=== PATIENT | male | born 1940 | race Caucasian/White ===

== ENCOUNTER 2016-09-14 22:04 | Inpatient (IN) | payer OTHER ==
[2016-09-14 22:42] LABS: MANUAL DIFF NEEDED? NO
[2016-09-14 22:45] LABS: BASO% 0.2 % (0.0-0.8); EOS# 0.05 X1000 (0.0-0.7); EOS% 0.4 % (0.0-10.0); HEMATOCRIT 49.4 % (42.0-52.0); HEMOGLOBIN 16.8 g/dL (14.0-18.0); IMM GRAN# 0.03 X1000 (0.0-0.04); IMM GRAN% 0.2 % (0.0-0.5); LYMPH# 1.79 X1000 (1.2-3.4); LYMPH% 12.7 % (20.5-51.1); MCV 85.2 FL (81-99); MONO# 0.48 X1000 (0.11-0.59); MONO% 3.4 % (1.7-9.3); MPV 10.5 FL (7.4-10.4); NEUT% 83.1 % (42.2-75.2); PLT 344 X1000 (130-400)
[2016-09-14 23:11] LABS: ALBUMIN 4.2 g/dL (3.5-5.0); CALCIUM 10.1 mg/dL (8.8-10.2); POTASSIUM 4.1 mmol/L (3.5-5.1); TOTAL BILIRUBIN 0.95 mg/dL (0.20-1.00); TOTAL PROTEIN 7.9 g/dL (6.3-8.3)
--- NOTE | 2016-09-15 01:26 | PROVIDER DOCUMENTATION ---
HPI-Abdominal Pain/GI Problem - General Chief Complaint: Abdominal Pain Stated Complaint: ABD PAIN Time Seen by Provider: 09/15/16 00:48 Source: patient Allergies/Adverse Reactions: Patient Allergies Allergy/AdvReac Type Severity Reaction Status Date / Time No Known Allergies Allergy Verified 09/14/16 23:36 Home Medications: Home Medication List Medication Instructions Recorded Confirmed Last Taken Type Tamsulosin [Flomax] 0.4 mg PO DAILY 07/29/16 09/14/16 09/14/16 History Levofloxacin [Levaquin] 500 mg PO DAILY #7 tablet 09/12/16 09/14/16 09/14/16 Rx Metronidazole [Flagyl] 500 mg PO Q8HR #21 tablet 09/12/16 09/14/16 09/14/16 Rx Omeprazole [Prilosec] 40 mg PO DAILY #90 capsule 09/12/16 09/14/16 09/14/16 Rx - History of Present Illness-ABD Nature of Presenting Problems: 76 year old M presents to the ED with a cc of nausea, vomiting, and diarrhea. PT states that on 09/09 he was seen here for the same. Pt states that he was admitted and diagnosed with colitis. PT was d/c on 09/12. Pt states that he felt better until yesterday when the nausea, vomiting, and pain began. Pt denies pain at this time. Abdominal Pain Onset Location: reports: periumbilical, suprapubic Pain Radiation: reports: no radiation Quality of Pain: reports: aching Severity in ED: reports: mild Onset/Duration: reports: 24 hours ago Timing: reports: still present Associated Symptoms: reports: nausea, vomiting Similar Symptoms Previously?: Yes Recently seen or treated by another doctor?: Yes Review of Systems - Adult - REVIEW OF SYSTEMS - ADULT Constitutional: denies: chills, fever Eyes: reports: no symptoms reported Ears, Nose, Mouth & Throat: reports: no symptoms reported Cardiovascular: denies: chest pain, palpitations Respiratory: denies: cough, shortness of breath Gastrointestinal: reports: abdominal pain, nausea, vomiting Genitourinary: denies: dysuria, hematuria Musculoskeletal: reports: no symptoms reported Integumentary: reports: no symptoms reported Neurological: reports: no symptoms reported Psychiatric: reports: no symptoms reported Endocrine: reports: no symptoms reported Hematologic/Lymphatic: reports: no symptoms reported Allergic/Immunologic: reports: no symptoms reported All Other Systems: Reviewed and Negative Past History - Adult - PAST MEDICAL HISTORY-ADULT Review of Records: reports: Nursing Assessment Review, Medications Reviewed Major Childhood Illnesses: reports: denies history Cardiovascular: reports: denies history Respiratory: reports: denies history Gastrointestinal: reports: denies history Obstetrical/Gynecological: reports: denies history Genitourinary: reports: denies history Musculoskeletal: reports: denies history Neurological: reports: denies history Endocrine/Immune: reports: denies history Other Conditions: reports: denies history - PRIOR SURGERIES/PROCEDURES Surgical/Procedure History: reports: appendectomy, cholecystectomy, other ( polyps removed from colon) - IMMUNIZATION STATUS Childhood Immunizations: See Nurse Assessment Flu Vaccine: See Nurse Assessment - FAMILY HISTORY Family History: reviewed, not pertinent - SOCIAL HISTORY Smoking: non-smoker Substance Use: none/never Alcohol Use Frequency: never Physical Exam-General - PHYSICAL EXAM-ADULT Initial Vital Signs Reviewed: Yes - CONSTITUTIONAL General Appearance: appears well, alert, no apparent distress - RESPIRATORY Respiratory: chest non-tender, lungs clear, normal breath sounds - CARDIOVASCULAR Cardiovascular: normal peripheral pulses, regular rate, rhythm, no edema - GASTROINTESTINAL (ABDOMEN) Abdominal Exam: normal bowel sounds, non tender, soft, no organomegaly, no pulsatile mass. negative: distended, guarding, rigid - MUSCULOSKELETAL Extremity: normal inspection - SKIN Integumentary: normal color, normal turgor, warm/dry - PSYCHIATRIC Psych/Mental Status: normal mood/affect, normal thought content, normal thought process, oriented x 3 Progress - PLAN OF CARE/RESULTS Progress/Plan/Lab Results: plan of care: imaging, labs Orders Category Date Time Status Saline Loc DIRECTED Care 09/14/16 22:23 Active NPO Diet 09/14/16 22:23 Active FLAT/UPRIGHT ABD/1 VIEW CHEST [RAD] Stat Exams 09/15/16 01:16 Taken AMYLASE [CHEM] Stat Lab 09/14/16 22:25 Completed CBC WITH ELECTRONIC DIFF [HEME] Stat Lab 09/14/16 22:25 Completed COMPREHENSIVE METABOLIC PANEL [CHEM] Stat Lab 09/14/16 22:25 Completed LIPASE [CHEM] Stat Lab 09/14/16 22:25 Completed URINALYSIS W/POSS RFLX CULT [URINALYSIS] Stat Lab 09/15/16 01:53 Completed URINE CULTURE [RM] Routine Lab 09/15/16 02:12 Received URINE MANUAL MICROSCOPIC [URINALYSIS] Stat Lab 09/15/16 01:53 Completed Laboratory Tests 09/14/16 09/14/16 09/15/16 22:25 22:25 01:53 WBC 14.09 H RBC 5.80 Hgb 16.8 Hct 49.4 MCV 85.2 MCH 29.0 MCHC 34.0 RDW Std Deviation 13.2 Plt Count 344 MPV 10.5 H Immature Gran % (Auto) 0.2 Neut % (Auto) 83.1 H Lymph % (Auto) 12.7 L Banner % (Auto) 3.4 Eos % (Auto) 0.4 Baso % (Auto) 0.2 Immature Gran # (Auto) 0.03 Neut # (Auto) 11.71 H Lymph # (Auto) 1.79 Banner # (Auto) 0.48 Eos # (Auto) 0.05 Baso # (Auto) 0.03 Sodium 138 Potassium 4.1 Chloride 96 L Carbon Dioxide 24 L Anion Gap 18 BUN 8 Creatinine 1.2 Estimated GFR/1.73 m2 59 BUN/Creatinine Ratio 7 Glucose 119 H Calculated Osmolality 275 Calcium 10.1 Total Bilirubin 0.95 AST 22 ALT 16 Alkaline Phosphatase 65 Total Protein 7.9 Albumin 4.2 Globulin 3.7 Albumin/Globulin Ratio 1.1 Amylase 53 Lipase 20 Urine Source CLEAN CATCH Urine Color ORANGE Urine Turbidity HAZY Urine pH 5.5 Ur Specific [place] 1.028 Urine Protein 100 A Ur Glucose (Stick) NEGATIVE Ur Ketones (Stick) 60 A Urine Blood TRACE A Urine Nitrite NEGATIVE Urine Bilirubin NEGATIVE Urobilinogen Dipstick NORMAL Urine Leukocytes TRACE A Urine WBC (Auto) <10 Urine RBC (Auto) <10 U Epithel Cells (Auto) <10 Urine Bacteria (Auto) NEGATIVE Urine Crystals NONE SEEN Small Round Cells NONE SEEN Urine Casts NONE SEEN Urine Yeast-like Cells NONE SEEN Vital Signs - 24 hr 09/14/16 09/15/16 22:17 00:20 Temperature 97.5 F L Pulse Rate 104 H 76 Respiratory 20 18 Rate Blood Pressure 106/78 117/82 O2 Sat by Pulse 98 95 Oximetry Pt/family given results. Pt will be admitted to the hospitalist group. PT/ Family in agreement with plan of care. - CONSULTS/PCP/HOSPITALIST Notification #1 *Consult/PCP/Hospitalist*: Dr. Pate- Hospitalist Time Discussed: 02:42 Consult Disposition: Will see in ED, Admit Departure - Departure Time of Disposition Order: 02:44 DIAGNOSIS: Colitis Disposition: ADMITTED INPATIENT 09 Certified Medical Emergency: Emergent Condition: Stable Referrals: Luis Mera MD [Primary Care Provider] - Attestation - Scribe Verification/Attestation Scribe:: Vane Ace Acting as Scribe for:: Tamir Leslie Scribe documention review:: This chart was documented by a scribe and accurately reflects the service the provider performed and the decisions made by the provider. Physician Attestation - Physician Attestation I, the provider, attest to the following statement:: Tamir Leslie Physician documentation Attestation:: This documentation recorded by the scribe accurately reflects the service I personally performed and the decisions made by me.
[2016-09-15 02:01] LABS: URINE SOURCE CLEAN CATCH
[2016-09-15 02:08] LABS: URINE MICRO REVIEW NEEDED? YES
[2016-09-15 02:11] LABS: BILIRUBIN URINE NEGATIVE (NEGATIVE); BLOOD URINE TRACE (NEGATIVE); COLOR ORANGE; GLUCOSE URINE NEGATIVE (NEGATIVE); LEUKOCYTES URINE TRACE (NEGATIVE); NITRITE URINE NEGATIVE (NEGATIVE); PH URINE 5.5; PROTEIN URINE 100 mg/dL (NEGATIVE); SP GRAVITY URINE 1.028; TURBIDITY URINE HAZY (CLEAR); UR EPITHELIAL CELLS <10 /HPF (<10); URINE BACTERIA NEGATIVE /HPF; URINE CULTURE NEEDED? YES; URINE RBC <10 /HPF (<10); URINE WBC <10 /HPF (<10); UROBILINOGEN URINE NORMAL (NORMAL)
[2016-09-15 02:36] LABS: URINE CASTS NONE SEEN; URINE CRYSTALS NONE SEEN; URINE SMALL ROUND CELLS NONE SEEN
[2016-09-15 04:50] LABS: INR 1.07; PROTIME 11.3 Seconds (9.2-11.7); PTT 27.3 Seconds (22.0-36.0)
[2016-09-15] MEDS ORDERED: ZOFRAN IV PRN (04:59)
[2016-09-15] MEDS ORDERED: TYLENOL PO PRN (04:59)
[2016-09-15] MEDS: FLAGYL 500 MG/NS 100 ML IV SCH ×3 (06:13→19:59)
[2016-09-15] MEDS: NS 1,000 ML IV SCH ×2 (06:13→18:08)
[2016-09-15] MEDS: PROTONIX IV SCH (06:14)
[2016-09-15 07:09] LABS: MANUAL DIFF NEEDED? NO
[2016-09-15 07:13] LABS: BASO% 0.2 % (0.0-0.8); EOS# 0.05 X1000 (0.0-0.7); EOS% 0.6 % (0.0-10.0); HEMATOCRIT 44.2 % (42.0-52.0); LYMPH# 1.97 X1000 (1.2-3.4); LYMPH% 22.2 % (20.5-51.1); MCH 29.1 PG (27-31); MCHC 33.9 g/dL (33-37); MCV 85.8 FL (81-99); MONO# 0.52 X1000 (0.11-0.59); MONO% 5.9 % (1.7-9.3); MPV 10.3 FL (7.4-10.4); NEUT% 71.1 % (42.2-75.2); PLT 298 X1000 (130-400); RBC 5.15 XMIL (4.7-6.1)
[2016-09-15] MEDS: LEVAQUIN 750 MG/D5W 150 ML IV SCH (07:25)
--- NOTE | 2016-09-15 07:25 | Diag Imaging Result Document ---
PROCEDURE NAME: FLAT/UPRIGHT ABD/1 VIEW CHEST - 09/15/2016 FLAT AND UPRIGHT AND CHEST, THREE VIEWS: FINDINGS: The lungs are well expanded. The heart is not enlarged. No pneumonia. No free air beneath the diaphragm. Air-distended small bowel loop in the mid abdomen. No organomegaly. No abnormal abdominal calcifications. Mild scoliosis with degenerative spine changes. There is a surgical clips in the upper right abdomen. IMPRESSION: Development of an air-distended loop of small bowel in the midabdomen which was not present on 09/10/2016. Findings could represent an ileus or a partial early obstruction. Followup films recommended.
[2016-09-15 07:34] LABS: AGAP 12; BUN 11 mg/dL (8-22); CHLORIDE 99 mmol/L (98-107); COSMO 271; POTASSIUM 3.9 mmol/L (3.5-5.1); SODIUM 136 mmol/L (136-145); TCO2 25 mmol/L (25-35)
[2016-09-15] MEDS: FLOMAX PO SCH (09:14)
[2016-09-15] MEDS: MORPHINE IV PRN ×2 (13:05→19:59)
--- NOTE | 2016-09-15 13:10 | Diag Imaging Result Document ---
PROCEDURE NAME: ABDOMEN/PELVIS W/WO CONTRAST - 09/15/2016 CT ABDOMEN AND PELVIS WITHOUT AND WITH INTRAVENOUS CONTRAST: COMPARISON: 09/09/2016. FINDINGS: On the noncontrast exam, there are a couple of stable nonobstructing left renal stones measuring about 3 mm. On the contrast-enhanced exam, there is some trace perihepatic free fluid and some trace pelvic free fluid, slightly increased from prior. There are numerous small, grossly stable cystic lesions in the liver. There is COPD in the lung bases with some linear atelectasis or scarring in the lower lobes. Heart size remains normal. Stable cholecystectomy changes. No biliary dilation. There are some stable left renal cysts. The pancreas, spleen, and adrenals are normal. Stable surgical changes to the hepatic flexure of the colon. There is a stable enhancing stricture of the distal-most ileum. There is significant dilation of the remainder of the small bowel concerning for partial obstruction. There is progressive collapse of the distal colon. The proximal colon is grossly normal in caliber and filled with fluid. Rectum is normal. Urinary bladder and prostate are normal. Stable degenerative changes of the bones. No acute bony lesions. IMPRESSION: 1. More evident stricture of the distal-most ileum with proximal small-bowel obstruction. 2. Trace ascites, slightly worsened since prior.
[2016-09-15] MEDS ORDERED: GOLYTELY PO ONE (15:08)
[2016-09-16] MEDS: PROTONIX IV SCH (04:55)
[2016-09-16] MEDS: SODIUM CHLORIDE 0.9% INJ SCH (04:55)
[2016-09-16] MEDS: FLAGYL 500 MG/NS 100 ML IV SCH ×3 (04:55→23:13)
[2016-09-16 05:43] LABS: MANUAL DIFF NEEDED? NO
[2016-09-16 05:49] LABS: BASO% 0.4 % (0.0-0.8); EOS# 0.09 X1000 (0.0-0.7); EOS% 1.3 % (0.0-10.0); HEMATOCRIT 43.2 % (42.0-52.0); HEMOGLOBIN 14.3 g/dL (14.0-18.0); LYMPH# 1.87 X1000 (1.2-3.4); LYMPH% 26.3 % (20.5-51.1); MCH 28.9 PG (27-31); MCHC 33.1 g/dL (33-37); MCV 87.4 FL (81-99); MONO# 0.53 X1000 (0.11-0.59); MONO% 7.4 % (1.7-9.3); MPV 10.4 FL (7.4-10.4); NEUT% 64.6 % (42.2-75.2); PLT 261 X1000 (130-400); RBC 4.94 XMIL (4.7-6.1)
[2016-09-16] MEDS: LEVAQUIN 750 MG/D5W 150 ML IV SCH (06:00)
[2016-09-16 06:30] LABS: AGAP 11; BUN 13 mg/dL (8-22); CALCIUM 8.9 mg/dL (8.8-10.2); CHLORIDE 102 mmol/L (98-107); COSMO 275; POTASSIUM 5.1 mmol/L (3.5-5.1); SODIUM 138 mmol/L (136-145); TCO2 25 mmol/L (25-35)
[2016-09-16] MEDS: FLOMAX PO SCH (08:33)
--- NOTE | 2016-09-16 08:57 | HISTORY AND PHYSICAL ---
PRIMARY CARE PROVIDER: Luis Mera MD CHIEF COMPLAINT: Abdominal pain. HISTORY OF PRESENT ILLNESS: Mr. Salcido is a 76-year-old male who was just recently discharged from the hospital on 09/12/2016 after being treated for acute colitis. He was sent home with oral Levaquin and Flagyl and was instructed to follow up with his primary care physician and Dr. Benites in two weeks. The patient states since his discharge that he had begun feeling better though stated yesterday he began having nausea and vomiting as well as abdominal pain. The patient described his abdominal pain as pins and needles type of pain. He states that it is intermittent, feeling like it comes in waves. He denies anything making it better or worse. He reports that the pain is periumbilical, as well as generalized upper quadrants. He is nontender upon palpation and bowel sounds were present in all four quadrants and normoactive. The patient on his two previous admissions for his treatment of colitis did have diarrhea present. Stool studies were performed which were negative. The patient at this time is denying any diarrhea, though he reports that he has only gone a small amount over the past few days. He reports that this had been soft, formed stool, brown in color. He denies any bloody or black stools. The patient reports that his emesis is light brown in color. He denies any blood or coffee-grounds appearance to his emesis. The patient did have a CT abdomen and pelvis performed on September 09 that did show worsening abdominal dilation of much of the small bowel, as well as the stomach with alternating areas of narrowing and some mucosal enhancement. The appearance was nonspecific though did suggest enterocolitis or inflammatory bowel disease. Due to continued nausea and vomiting, the patient did have an NG tube placed on his previous admission for a possible bowel obstruction. He did have a small bowel barium follow through study performed which was grossly unremarkable and no evidence of obstruction. Upon presentation to the ER today the patient's white blood cell count was elevated at 14.09, which was an increase from 5.32 on September 12. At this time we will admit the patient for further treatment and evaluation of his colitis, abdominal pain, nausea and vomiting. We will consult Dr. Benites with Gastroenterology to evaluate the patient as well. REVIEW OF SYSTEMS: A 14-point review of systems was conducted with the patient and all were negative except for pertinent positives mentioned in the above HPI. He denies any headache, dizziness, light-headedness, chest pain, shortness of breath, dysuria, or urinary frequency, pain, numbness or tingling in the extremities. PAST MEDICAL HISTORY: 1. Gastroesophageal reflux disease. 2. Benign prostatic hypertrophy. PAST SURGICAL HISTORY: 1. Cholecystectomy. 2. Abdominal surgery for removal of a colon polyp. SOCIAL HISTORY: The patient denies any present or past tobacco, alcohol or illicit drug use. FAMILY HISTORY: Positive for his mother passing away from heart disease at the age of 89. The patient also reported that his father from heart disease as well. He denies any other known family medical problems. ALLERGIES: The patient has no known drug allergies. HOME MEDICATIONS: 1. Levaquin 500 mg p.o. daily. 2. Flagyl 500 mg p.o. q.8 h. 3. Prilosec 40 mg p.o. daily. 4. Flomax 0.4 mg p.o. daily. DIAGNOSTIC DATA/ LABORATORY RESULTS: White blood cell count was 14.09. Hemoglobin 16.8. Hematocrit 49.4. Platelet count 344,000. ESR was 3. PT 11.3. INR 1.07. PTT 27.3. Sodium 138. Potassium 4.1. Chloride 96. Bicarb 24. BUN 8. Creatinine 1.2. GFR 59. Glucose 119. Calcium 10.1. Liver function tests within normal limits. C-reactive protein was 2.89. Amylase 53. Lipase 20. The urinalysis was obtained via clean catch. It was positive for protein, ketones, trace blood, and trace leukocytes, though was negative for glucose, nitrites, or bacteria. Pending diagnostic studies are an abdomen flat and upright. PHYSICAL EXAMINATION: VITAL SIGNS: Temperature is 97.5, heart rate 70, respirations 19, and blood pressure is 102/75. The oxygen saturation is 96% on room air. GENERAL: Mr. Salcido is a very pleasant elderly 76-year-old male who is resting comfortably in the ER stretcher. He is in no acute distress. He was awake, alert, and able to answer all questions appropriately. HEENT: The head is normocephalic and atraumatic. The pupils are equal, round, and reactive to light, 3 mm bilaterally and brisk. The oral mucosa is moist. The oropharynx is clear. NECK: Supple. The trachea is midline. No JVD is noted. CARDIOVASCULAR: The patient has a normal S1 and S2. No murmurs, rubs, or gallops are appreciated, with a regular rate and rhythm. PULMONARY: The patient has symmetrical chest expansion bilaterally. The lung sounds are clear to auscultation in bilateral full rhoades. ABDOMEN: The abdomen is soft, nontender, and nondistended. Bowel sounds are present in all four quadrants and normoactive. EXTREMITIES: No edema, cyanosis, or clubbing is noted. Pulses, motor, and sensory is intact in all extremities. Pedal pulses are 2+ bilaterally. INTEGUMENTARY: The patient's skin is pink, warm, dry, and intact. No lesions or sores are noted. NEUROLOGICAL: The patient is alert and oriented x4. Cranial nerves II through XII are grossly intact. ASSESSMENT AND PLAN: 1. Colitis. 2. Nausea and vomiting. 3. gastroesophageal reflux disease. 4. Benign prostatic hypertrophy. PLAN: At this time we will place the patient on a medical floor with telemetry. He will have vital signs q.8 h. DVT prophylaxis will be provided with SCDs. For treatment of his colitis, we will place a consult with Dr. Benites for evaluation and further recommendations. We will also place him on Levaquin 750 mg IV q.24 h., as well as Flagyl 500 mg IV q.8 h. We will also give him Zofran p.r.n. for nausea and vomiting. For his gastroesophageal reflux disease as well as GI prophylaxis we will place him on Protonix 40 mg IV q.24 h. We will continue his Flomax for treatment of his BPH. The patient's urinalysis did show trace blood, as well as trace leukocytes. We are awaiting a urine culture at this time and will continue to follow. At this time we have placed the patient on a clear liquid diet. The patient reports that he has not vomited since before his arrival to the ER. Further orders and recommendations pending the hospital course, diagnostic studies, and physician evaluation. Dictated by BRIDGETT Ahmadi for Maxwell Pate MD
[2016-09-16] MEDS ORDERED: MYLICON DROPS (DOSE) MISC ONE (11:37)
[2016-09-16] MEDS ORDERED: DIPRIVAN 1% ONE (12:15)
[2016-09-16] MEDS ORDERED: XYLOCAINE-MPF 2% ONE (13:02)
[2016-09-16] MEDS ORDERED: LR 1,000 ML ONE (13:02)
[2016-09-16] MEDS ORDERED: ANESTHESIA PB SET 88 IN 5742 ONE (13:02)
--- NOTE | 2016-09-16 14:59 | PROGRESS NOTE ---
DATE: 09/16/2016 SUBJECTIVE: The patient is feeling fine. Denies any fever or chills. OBJECTIVE: Vital Signs: Temperature 98.4 degrees, heart rate 60, respiratory rate 15, blood pressure 106/85, and O2 saturation 97% on room air. General: This is a very please elderly 76- year-old male, lying in bed, in no acute distress. HEENT: Head is normocephalic, atraumatic. Anicteric sclerae and pale conjunctivae. Mucous membranes moist. Neck: Supple. No JVD noted. No carotid bruits. No lymphadenopathy. No thyromegaly. Cardiovascular: S1 and S2 heard. No murmurs, gallops, or rubs. Regular rate and rhythm. Respiratory: Clear bilaterally to auscultation. No work of breathing or using accessory muscles. Abdomen: Soft, nontender to palpation. Bowel sounds present. No organomegaly. Extremities: No clubbing, cyanosis, or edema. Peripheral pulses present in both legs. Neurological: The patient alert and oriented x3. Able to move 4 extremities. Cranial nerves 2 through 12 grossly normal. LABORATORY DATA: The CBC and BMP are completely. ASSESSMENT: 1. Acute colitis. 2. Intractable nausea and vomiting. 3. Gastroesophageal reflux disease. 4. Benign prostatic hypertrophy. PLAN: Because this is the second episode of colitis recently, Dr. Benites has been consulted, and he is supposed to evaluate this patient with a colonoscopy and endoscopy. We are awaiting for the results. The patient is going to have this exam today morning. Right now he is currently on Flagyl 500 mg IV every 8 hours and also Levaquin 750 every 24 hours as well. We will continue with the same medications. We will see what GI has to say. Also because of the finding in the CT of the abdomen of a stricture, we prefer to get Surgery on board. Dr. Tamir Saravia has been consulted. We are awaiting for his input. In the meantime, we will continue with the same management. For benign prostatic hypertrophy, we will continue with Flomax. Further recommendations to follow.
[2016-09-16] MEDS: NEOMYCIN PO SCH ×3 (17:46→23:11)
[2016-09-16] MEDS: ERYTHROMYCIN BASE PO SCH ×3 (17:47→23:12)
[2016-09-17] MEDS: LEVAQUIN 750 MG/D5W 150 ML IV SCH (06:44)
[2016-09-17] MEDS: FLAGYL 500 MG/NS 100 ML IV SCH ×3 (07:59→23:20)
[2016-09-17] MEDS: FLOMAX PO SCH (10:32)
[2016-09-17] MEDS: PROTONIX IV SCH (10:33)
[2016-09-17 11:21] LABS: URINE MICRO REVIEW NEEDED? NO; URINE SOURCE CATH
[2016-09-17] MEDS ORDERED: FENTANYL ONE (11:21)
[2016-09-17] MEDS ORDERED: DIPRIVAN 1% ONE (11:21)
[2016-09-17 11:26] LABS: UR EPITHELIAL CELLS <10 /HPF (<10); URINE BACTERIA NEGATIVE /HPF; URINE WBC <10 /HPF (<10)
[2016-09-17] MEDS ORDERED: NS 1,000 ML ONE (11:36)
[2016-09-17] MEDS ORDERED: MORPHINE PCA ONE (11:36)
[2016-09-17] MEDS ORDERED: MORPHINE ONE (11:44)
[2016-09-17 11:53] LABS: BILIRUBIN URINE NEGATIVE (NEGATIVE); BLOOD URINE NEGATIVE (NEGATIVE); COLOR YELLOW; GLUCOSE URINE NEGATIVE (NEGATIVE); LEUKOCYTES URINE NEGATIVE (NEGATIVE); NITRITE URINE NEGATIVE (NEGATIVE); PH URINE 5.5; PROTEIN URINE TRACE mg/dL (NEGATIVE); SP GRAVITY URINE 1.022; TURBIDITY URINE CLEAR (CLEAR); UROBILINOGEN URINE NORMAL (NORMAL)
[2016-09-17] MEDS ORDERED: NARCAN IV PRN (12:17)
[2016-09-17] MEDS ORDERED: ZOFRAN IV PRN (12:17)
[2016-09-17] MEDS ORDERED: NARCAN 0.4 MG in LR 1,000 ML IV PRN (12:17)
--- NOTE | 2016-09-17 13:47 | OPERATIVE NOTE ---
PROCEDURE DATE : 09/17/2016 PROCEDURES PERFORMED: 1. Sigmoid colon resection. 2. Right colon resection with distal ileum. 3. Meckel's diverticulectomy. 4. Biopsy of the peritoneal nodule. SURGEON: Dr. Tamir Saravia ASSISTANTS: Linda and Ginny PREOPERATIVE DIAGNOSIS: Sigmoid constricting lesion. POSTOPERATIVE DIAGNOSES: 1. Sigmoid constricting lesion 2.Distal ileal lesion with constriction (involving cecum) 3. Meckel's diverticulum. 4. Peritoneal nodule. INDICATION: This is a 76 year old who has had crampy pain. He underwent colonoscopy yesterday by Dr. Benites and was found to have a near obstructive lesion of his sigmoid colon. He was brought to the operating room for open sigmoid resection. FINDINGS: The patient had the sigmoid lesion that appeared to be malignant. He had a distal ileal lesion, the character of which was difficult to determine. There was a peritoneal nodule in the pelvic peritoneum that was biopsied, and he also had a Meckel's diverticulum. The previous transverse colectomy staple line was identified. DESCRIPTION OF PROCEDURE: After satisfactory general endotracheal anesthesia was achieved, the abdomen was prepped and draped was sterile fashion. He was in Saran stirrups. Lower midline incision was made from just at the umbilicus to the pubis. We carried out incision to the subcutaneous tissue, through the midline fascia and entered the abdominal cavity. Upon entering the abdominal cavity, we identified the mass in the sigmoid. We placed the patient in Trendelenburg, used a Bookwalter retractor to retract the sidewalls, and he was placed in Trendelenburg to help keep the small bowel falling out of the way. We then scored the peritoneum on both sides of the lesion, thereby mobilizing the sigmoid loop. There was a small peritoneal nodule distally in the pelvis, and we did remove it for biopsy. We chose a spot in the proximal sigmoid where we divided the sigmoid colon with a ROXANA-60 blue stapler. We then used a LigaSure in the mesentery down to the sigmoid vessels. We then clamped and divided the sigmoid vessels with Lynette clamps, ligating with a 2-0 silk suture ligature. We continued taking the mesentery of the sigmoid down to the distal sigmoid where it was convenient to approximate the bowel, and we cleaned off the colon there. We laid the specimen outside the patient and then constructed the 2- layered anastomosis using 3-0 silk seromuscular stitch from the distal colon to the proximal colon. After placing those, we amputated the colon and handed off the specimen. We excised the staple line from the proximal colon and then had the opening of the bowel facing us. We then used a 3-0 Polysorb running, locking stitch posteriorly and changed it to a canal stitch anteriorly. Our final layer was in 3-0 silk in a Lembert fashion. This completed a 2-layer anastomosis. We changed gloves at this point and rid ourselves of contaminated instruments. We irrigated out the pelvis. Because of the question of an ileal lesions, I then palpated the small bowel and could palpate that there was a hard mass at the ileum as well. So we extended our incision cephalad and then mobilized the right colon. This lesion appeared to be in the distal ileum, but it did pull the cecum into it as well, so it was difficult to tell the character of the lesion, but I considered it probably malignant even though I could not for sure say that , but regardless, it was causing him significant symptoms, so we went ahead and planned to remove it. We scored the peritoneum proximally. We went all the way up to the transverse colon where the previous anastomosis had been done. We did not want to leave any segment of the right colon between the old staple line and a new staple line in order to preserve blood supply, so we went to the transverse colon just distal to where the old anastomosis was. We cleaned off the colon there and divided it with a ROXANA-60 blue stapler. We did ligate what appeared to be the right colic vessels with 2-0 silk suture ligature and divided them. We then completed our mesentery resection with a LigaSure. We divided the ileum with again a ROXANA blue cartridge 60 mm long. We handed off that specimen and then constructed a [id number] stapled anastomosis between the ileum and the transverse colon. After completing that, the open end of the bowel was then closed with a TA-60 blue stapler, and that staple line was inverted with 3-0 silks in a Lembert fashion. The mesentery was closed with 3-0 silk. We then changed gloves again after completing that. We ran the small bowel, and no other masses were palpated. He was found to have a Meckel's diverticulum. We palpated the rest of the colon, and no other mass or lesion was palpated in it. I asked the nurse plant pathologist to place an NG tube, and it was palpated in the stomach in satisfactory position. We did decide to do the Meckel's diverticulectomy. There did feel to be some tissue in the very trough of the diverticulum, so we held it up and used a ROXANA-60 blue stapler to staple across the Meckel's diverticulum. We oversewed that stable line with 3-0 silk in a Lembert fashion. This did not compromise the lumen of the bowel. Our specimens were sigmoid colon, right colon, Meckel's diverticulum and the peritoneal biopsy from the pelvis. We irrigated out the abdominal cavity with warm saline. Hemostasis was satisfactory. Since there were no other lesions palpated, we then closed the peritoneum with 2-0 chromic. We closed the fascia with a running #2 Prolene. We irrigated the subcutaneous tissue and closed the skin with kulwinder. Sterile dressing was applied. Estimated blood loss was 200 mL. He tolerated it well and was sent to the recovery room in satisfactory condition. [facility]
[2016-09-17] MEDS: NS 1,000 ML IV SCH ×2 (14:25→20:25)
--- NOTE | 2016-09-17 14:38 | PROGRESS NOTE ---
DATE: 09/17/2016 SUBJECTIVE: Patient just back from surgery. The patient is sleeping right now. Family at bedside reports that he is doing okay. OBJECTIVE: Vital Signs: Temperature 97.8 degrees, heart rate 73, respiratory rate 18, blood pressure 102/61, O2 saturation 100% on 2 L nasal cannula. General Examination: This is a very pleasant, elderly, 76-year-old male, lying in bed, in no acute distress. HEENT: Head is normocephalic, atraumatic. Anicteric sclerae and pale conjunctivae. Mucous membranes moist. Neck: Supple. No JVD noted. No carotid bruits. No lymphadenopathy. No thyromegaly. Cardiovascular: S1, S2 heard. No murmurs, gallops, or rubs. Regular rate and rhythm. Respiratory: Clear bilaterally to auscultation. No work of breathing or using accessory muscles. Abdomen: Soft. Dressing covering the midline abdomen. Bowel sounds distant but present. Neurological: Patient is sleepy but moves 4 extremities. LABORATORY DATA: There are no labs from today. ASSESSMENT AND PLAN: 1. Colon mass. 2. Intractable nausea and vomiting. 3. Acute colitis. 4. Benign prostatic hypertrophy. 5. Gastroesophageal reflux disease. Patient was admitted to the hospital for recurrent episodes of colitis. This was the 2nd in 1 month. So, the colonoscopy shows strictures in the abdomen and finally Dr. Saravia was consulted who removed according to the family, 2 masses in the colon. The patient is now just back from surgery. At this point, we will continue with the same antibiotic management, in this case, Flagyl and Levaquin. We will see what Dr. Saravia has to say. For the other medical conditions, patient is not vomiting anymore and we will continue basically with the same management for benign prostatic hypertrophy and gastroesophageal reflux disease.
[2016-09-18] MEDS: PERIDEX MT SCH ×3 (00:24→21:13)
[2016-09-18] MEDS: FLAGYL 500 MG/NS 100 ML IV SCH ×3 (00:25→16:01)
[2016-09-18] MEDS: NS 1,000 ML IV SCH ×3 (04:24→21:14)
[2016-09-18 05:45] LABS: HEMATOCRIT 39.3 % (42.0-52.0); HEMOGLOBIN 13.2 g/dL (14.0-18.0); IMM GRAN# 0.04 X1000 (0.0-0.04); IMM GRAN% 0.3 % (0.0-0.5); LYMPH# 0.75 X1000 (1.2-3.4); LYMPH% 6.3 % (20.5-51.1); MANUAL DIFF NEEDED? YES; MCH 29.5 PG (27-31); MCHC 33.6 g/dL (33-37); MCV 87.9 FL (81-99); MONO# 0.72 X1000 (0.11-0.59); MPV 10.3 FL (7.4-10.4); NEUT% 87.4 % (42.2-75.2); PLT 255 X1000 (130-400); RBC 4.47 XMIL (4.7-6.1)
[2016-09-18] MEDS: LEVAQUIN 750 MG/D5W 150 ML IV SCH (05:49)
[2016-09-18 05:58] LABS: AGAP 15; BUN 12 mg/dL (8-22); CALCIUM 8.5 mg/dL (8.8-10.2); CHLORIDE 100 mmol/L (98-107); COSMO 273; SODIUM 136 mmol/L (136-145); TCO2 21 mmol/L (25-35)
[2016-09-18] MEDS: FLOMAX PO SCH (08:56)
[2016-09-18] MEDS: PROTONIX IV SCH ×2 (08:56→14:45)
[2016-09-18] MEDS: MORPHINE PCA IV PRN (13:40)
--- NOTE | 2016-09-18 14:52 | PROGRESS NOTE ---
DATE: 09/18/2016 SUBJECTIVE: The patient is doing fine. 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 OBJECTIVE: Vital Signs: Temperature 98.5 degrees, heart rate 74, respiratory rate 18, blood pressure 123/60, O2 saturation 100% on room air. General Examination: This is a very pleasant elderly 76-year-old male, lying in bed, in no acute distress. HEENT: Head is normocephalic, atraumatic. Anicteric sclerae and pale conjunctivae. Mucous membranes moist. Neck: Supple. No JVD noted. No carotid bruits. No lymphadenopathy. No thyromegaly. Cardiovascular: S1, S2 heard. No murmurs, gallops, or rubs. Regular rate and rhythm. Respiratory: Clear bilaterally to auscultation. No work of breathing or using accessory muscles. Abdomen: Soft with dressing covering the midline abdomen dry and clean. Bowel sound distant, but present. Neurological: Patient moves 4 extremities. Alert and oriented x3. LABORATORY DATA: White cell count 11.97, hemoglobin 13.2, hematocrit 29.3, platelets 255,000. BMP unremarkable. ASSESSMENT AND PLAN: 1. Recurrent colitis, status post sigmoid and right colon resection. 2. Diverticulectomy. 3. Intractable nausea and vomiting. 4. Benign prostatic hypertrophy. 5. Gastroesophageal reflux disease. 6. Patient was admitted to the hospital because of recurrent colitis and because endoscopy shows a stricture and Dr. Saravia from General Surgery was consulted and he performed procedure as above. At this time, patient is stable with pain well controlled. At this point, we are going to continue with the same management as per Surgery. My best guess is that this patient may stay 2-3 more days in the hospital recovering from surgery and then if everything is fine and labs are doing okay, we can let him go and continue his recovery as an outpatient.
--- NOTE | 2016-09-18 16:09 | OPERATIVE NOTE ---
PROCEDURE DATE: 09/16/2016 PROCEDURE: Incomplete colonoscopy and biopsy. MEDICATIONS: MAC as per anesthesia. SCOPE: [employer] CF HQ [id number]. PREOPERATIVE DIAGNOSES: 1. Partial bowel obstruction. 2. Abnormal CT scan with possible stricture in the terminal ileum. POSTOPERATIVE DIAGNOSIS: Almost occluding stricture in the sigmoid colon, biopsied. HISTORY: This is a 76-year-old gentleman admitted to the hospital with abdominal pain, nausea, vomiting. Imaging studies had suggested stricture in the terminal ileum. Colonoscopy was done for diagnostic as well as therapeutic purposes. DESCRIPTION OF PROCEDURE: Informed consent was obtained from the patient. Procedure risks, benefits, alternatives were explained in layman's terms. He understood. All his pertinent questions were answered. Risks of, but not limited to, bleeding, perforation, aspiration, pneumonia were explained. He understood and agreed to proceed. Patient was brought to the endoscopy unit and was premedicated as per anesthesia. After adequate sedation, while he was lying in left lateral position, digital rectal exam was performed which was normal. The scope was then gently introduced into the rectum and advanced under direct vision. I was able to advance all the way up to 25 to 30 cm and further advance was not possible because there was very tight stricture. The stricture had significant edema around the lumen and the stricture appeared to be a few millimeters in diameter. At this point, I went ahead and switched my scope to gastroscope. Even the gastroscope could not be advanced through the stricture. At this point multiple biopsies were obtained using cold biopsy forceps and the scope was withdrawn. No other pathology seen. Retroflexed view of rectum revealed no pathology either. The scope was removed. The patient tolerated the procedure well. No complications noted. Patient was then transferred to the recovery area in a stable condition. IMPRESSION: Stricture at the sigmoid colon, tight, could not be traversed. Nature of the stricture is not clear. This could be inflammatory; however, a neoplastic lesion is also a possibility. Biopsied. RECOMMENDATION: I have shown the case and findings to Dr. Scotty vasquez who is the surgeon on his case and further plans will be made according to his discuss with the family. Case was discussed with the patient's family members.
[2016-09-18] MEDS: LOVENOX SUBQ SCH (21:13)
[2016-09-19] MEDS: FLAGYL 500 MG/NS 100 ML IV SCH ×3 (05:41→19:50)
[2016-09-19] MEDS: NS 1,000 ML IV SCH ×2 (05:41→13:10)
[2016-09-19] MEDS: LEVAQUIN 750 MG/D5W 150 ML IV SCH (05:41)
[2016-09-19] MEDS: PROTONIX IV SCH ×2 (08:08→10:44)
[2016-09-19] MEDS: SODIUM CHLORIDE 0.9% INJ SCH (08:08)
[2016-09-19] MEDS: FLOMAX PO SCH (08:08)
[2016-09-19] MEDS: PERIDEX MT SCH ×2 (08:08→19:50)
[2016-09-19] MEDS ORDERED: ROBINUL ONE (08:44)
[2016-09-19] MEDS ORDERED: EXTENSION SET 32 IN 4522 ONE (08:44)
[2016-09-19] MEDS ORDERED: LR 3,000 ML ONE (08:44)
[2016-09-19] MEDS ORDERED: NORCURON ONE (08:44)
[2016-09-19] MEDS ORDERED: QUELICIN (DOSE) ONE (08:44)
[2016-09-19] MEDS ORDERED: NEOSTIGMINE ONE (08:44)
[2016-09-19] MEDS ORDERED: ANESTHESIA PB SET 88 IN 5742 ONE (08:44)
[2016-09-19] MEDS ORDERED: STERILE WATER INJ. ONE (08:44)
[2016-09-19] MEDS ORDERED: XYLOCAINE-MPF 2% ONE (08:44)
[2016-09-19] MEDS ORDERED: EPHEDRINE ONE (08:44)
[2016-09-19] MEDS ORDERED: ZOFRAN ONE (08:44)
[2016-09-19] MEDS ORDERED: DECADRON ONE (08:44)
--- NOTE | 2016-09-19 13:35 | PROGRESS NOTE ---
DATE: 09/19/2016 SUBJECTIVE: Patient is feeling fine. Less abdominal pain. OBJECTIVE: Vital Signs: Temperature 98.4 degrees, heart rate 63, respiratory rate 18, blood pressure 122/71, O2 saturation 100% on 2 L nasal cannula. General examination: This is a very pleasant, elderly, 76-year-old male, lying in bed, in no acute distress. HEENT: Head is normocephalic, atraumatic. Anicteric sclerae. Pale conjunctivae. Mucous membranes moist. Neck: Supple. No JVD noted. No carotid bruits. No lymphadenopathy. No thyromegaly. Cardiovascular: S1, S2 heard. No murmurs, gallops, or rubs. Regular rate and rhythm. Respiratory: Clear bilaterally to auscultation. No work of breathing or using accessory muscles. Abdomen: Soft. Nontender to palpation. Bowel sounds present. Dressing covering the abdomen midline. Extremities: No clubbing, cyanosis, or edema. Peripheral pulses present in both legs. Neurological: Patient is alert and oriented x3. Able to move her extremities. Cranial nerves 2 through 12 grossly normal. LABORATORY DATA: There are no labs from today. ASSESSMENT: 1. Recurrent colitis with colonic mass status post sigmoid and right colon resection. 2. Intractable nausea and vomiting. 3. Benign prostatic hypertrophy. 4. Gastroesophageal reflux disease. PLAN: The patient was admitted to the hospital for recurrent colitis and finally after colonoscopy found to have strictures he underwent a partial colectomy. Dr. Saravia is following this patient. He is doing fine. The NG tube has been removed as well as the SUPERVISOR OVENS pump for management of pain. Patient is definitely much better. We are going to consult physical therapy. Will discharge this patient when he is cleared by general surgery.
--- NOTE | 2016-09-19 16:47 | PROGRESS NOTE ---
DATE: 09/19/2016 SUBJECTIVE: Patient states he is feeling better. He is status post sigmoid colon resection with right colon resection of distal ileum, diverticulectomy and biopsy of the peritoneal nodule. Patient had surgery on 09/17/2016. Findings significant for sigmoid constricting lesion, distal ileal lesion with constriction involving the cecum, Meckel's diverticulum and peritoneal nodule. OBJECTIVE: Patient has a midline incision with dressing intact.Respiratory: Lung sounds essentially clear bilaterally. Abdomen: Dressing intact. Hypoactive bowel sounds. Abdomen is soft, mild postoperative tenderness. Vital Signs: Temperature 98.4 degrees, pulse 63, respirations 18, blood pressure 122/71. LABORATORY: Hematology. White count 11.97, hemoglobin 13.2, hematocrit 39.3, platelets 255,000. Chemistry. Sodium 136, potassium 5.0, chloride 100, CO2 21, BUN 12, creatinine 11.1, glucose 125. ASSESSMENT AND PLAN: 1. Status post colon resection. 2. Nausea and vomiting have resolved. 3. Benign prostatic hypertrophy . 4. Gastroesophageal reflux disease. 5. Diverticulectomy. We are awaiting pathology results from the biopsies from surgery. Continue supportive care. Patient is currently tolerating ice chips. Advance diet per surgery. Will continue to follow and be available as needed. Dictated by BRIDGETT Parrish for Guido Benites MD
[2016-09-19] MEDS: MORPHINE PCA IV PRN (18:20)
[2016-09-19] MEDS: LOVENOX SUBQ SCH (19:50)
[2016-09-20] MEDS: NS 1,000 ML IV SCH ×3 (00:47→18:14)
[2016-09-20] MEDS: PERIDEX MT SCH ×4 (00:47→22:02)
[2016-09-20] MEDS: LOVENOX SUBQ SCH ×2 (00:47→22:02)
[2016-09-20] MEDS: FLAGYL 500 MG/NS 100 ML IV SCH ×3 (04:28→22:02)
[2016-09-20] MEDS: LEVAQUIN 750 MG/D5W 150 ML IV SCH (05:54)
[2016-09-20 06:01] LABS: MANUAL DIFF NEEDED? NO
[2016-09-20 06:04] LABS: BASO% 0.3 % (0.0-0.8); EOS% 1.3 % (0.0-10.0); HEMATOCRIT 35.1 % (42.0-52.0); HEMOGLOBIN 11.7 g/dL (14.0-18.0); IMM GRAN# 0.02 X1000 (0.0-0.04); IMM GRAN% 0.3 % (0.0-0.5); LYMPH# 1.47 X1000 (1.2-3.4); LYMPH% 19.8 % (20.5-51.1); MCH 29.3 PG (27-31); MCHC 33.3 g/dL (33-37); MCV 87.8 FL (81-99); MONO# 0.44 X1000 (0.11-0.59); MONO% 5.9 % (1.7-9.3); MPV 9.9 FL (7.4-10.4); NEUT% 72.4 % (42.2-75.2); PLT 220 X1000 (130-400)
[2016-09-20 06:22] LABS: AGAP 14; BUN 11 mg/dL (8-22); CALCIUM 7.9 mg/dL (8.8-10.2); CHLORIDE 99 mmol/L (98-107); COSMO 274; SODIUM 138 mmol/L (136-145); TCO2 25 mmol/L (25-35)
[2016-09-20] MEDS: SODIUM CHLORIDE 0.9% INJ SCH (07:25)
[2016-09-20] MEDS: FLOMAX PO SCH ×2 (07:25→09:48)
[2016-09-20] MEDS: PROTONIX IV SCH ×2 (07:25→09:49)
--- NOTE | 2016-09-20 14:55 | PROGRESS NOTE ---
DATE: 09/20/2016 SUBJECTIVE: Patient is lying in bed. He states he is feeling better. He is a little more sore today. He is status post sigmoid colon resection with right colon resection of distal ileum, diverticulectomy, and biopsy of a peritoneal nodule. The patient had surgery on 09/17/2016. His Cox catheter was removed. He is urinating without problems. He reports postoperative abdominal tenderness. He has not had a bowel movement yet. Order was given to advance diet to clear liquids today by Dr. Saravia. OBJECTIVE: Patient has midline incision with dressing intact.Respiratory: Lung sounds clear. Abdomen: With hypoactive bowel sounds. Mild tenderness postoperatively. Vital Signs: Temperature 98.4 degrees, pulse 70, respirations 18, blood pressure 120/69. LABORATORY: Hematology: White count 7.42, hemoglobin 11.7, hematocrit 35.1. Chemistry: Sodium 138, potassium 4.0, chloride 99, CO2 of 25, BUN 11, creatinine 0.8. ASSESSMENT AND PLAN: 1. Status post colon resection and resection of distal ileum, diverticulectomy, and biopsy of peritoneal nodule. Biopsies are pending. 2. Nausea and vomiting have resolved. Continue current medications. Continue supportive care. Awaiting pathology results. Advancing diet to clear liquid today per Dr. Sarvaia. We will be available as needed. Dictated by BRIDGETT Parrish for Guido Benites MD
--- NOTE | 2016-09-20 17:34 | PROGRESS NOTE ---
DATE: 09/20/2016 SUBJECTIVE: This patient states that he is doing better. Today the diet has been advanced to clear liquid diet. He denies nausea, vomiting, diarrhea, or constipation. OBJECTIVE: Vital Signs: Temperature 98.4 degrees, pulse 73, respiratory rate 18, blood pressure 139/74, O2 saturation 99 on room air. HEENT: Head normocephalic. No trauma. PERRLA. Neck: Supple. No JVD. No masses. Central trachea. Chest: Clear to auscultation. No wheezing. No rales. Cardiovascular: RRR. No murmurs. Abdomen: Soft, with dressing covering the midline abdomen that is dry and clean. Bowel sounds are distant but present. Neurological: The patient is alert and oriented x4. No focal neurological deficits. LABORATORY: WBC 7, hemoglobin 11.7, hematocrit 35.1, platelets 220,000. Sodium 138, potassium 4, chloride 99, bicarbonate 25, BUN 11, creatinine 0.8, glucose 84, calcium 7.9. ASSESSMENT AND PLAN: 1. Recurrent colitis status post sigmoid colon resection, right colon resection with distal ileum, diverticulectomy, biopsy of peritoneal nodule, pending biopsy results by Pathology. We will continue monitoring this patient. Today the diet has been advanced. Physical therapy is on board. 2. Intractable nausea and vomiting, resolved. This patient is not complaining of nausea or vomiting at this moment. 3. BPH, stable. Continue with the same management. 4. GERD continue with PPIs. This patient is doing better. Surgery Department is on board. The diet has been advanced today to liquid diet. Once this patient is better and tolerating the whole diet, he is going to be able to be discharged if Surgery clears this patient.
[2016-09-21] MEDS: NS 1,000 ML IV SCH (04:19)
[2016-09-21] MEDS: FLAGYL 500 MG/NS 100 ML IV SCH ×3 (04:19→21:05)
[2016-09-21] MEDS: LEVAQUIN 750 MG/D5W 150 ML IV SCH (05:28)
[2016-09-21 06:10] LABS: MANUAL DIFF NEEDED? NO
[2016-09-21 06:20] LABS: BASO% 0.2 % (0.0-0.8); EOS# 0.17 X1000 (0.0-0.7); EOS% 2.6 % (0.0-10.0); HEMATOCRIT 35.6 % (42.0-52.0); LYMPH% 18.2 % (20.5-51.1); MCH 29.1 PG (27-31); MCHC 33.7 g/dL (33-37); MCV 86.2 FL (81-99); MONO# 0.42 X1000 (0.11-0.59); MONO% 6.4 % (1.7-9.3); MPV 10.2 FL (7.4-10.4); NEUT% 72.6 % (42.2-75.2); PLT 250 X1000 (130-400); RBC 4.13 XMIL (4.7-6.1)
[2016-09-21 06:42] LABS: AGAP 9; BUN 8 mg/dL (8-22); CALCIUM 8.1 mg/dL (8.8-10.2); CHLORIDE 99 mmol/L (98-107); COSMO 270; POTASSIUM 3.9 mmol/L (3.5-5.1); SODIUM 136 mmol/L (136-145); TCO2 28 mmol/L (25-35)
[2016-09-21] MEDS: PROTONIX IV SCH (09:34)
[2016-09-21] MEDS: FLOMAX PO SCH (09:34)
[2016-09-21] MEDS: PERIDEX MT SCH ×2 (09:34→21:08)
[2016-09-21] MEDS: SODIUM CHLORIDE 0.9% INJ SCH (09:34)
[2016-09-21] MEDS ORDERED: NS 1,000 ML IV SCH (10:30)
--- NOTE | 2016-09-21 15:15 | PROGRESS NOTE ---
DATE: 09/21/2016 SUBJECTIVE: The patient states he is feeling better. He reports having a very small bowel movement. He did pass some flatus. He is tolerating a diet, but eating only small amounts. He is on a full liquid diet with Ensure. OBJECTIVE: Vital Signs: Temperature 98.5 degrees, pulse 71, respirations 16, blood pressure 137/84. General Appearance: Patient is awake, alert, in no acute distress. Respiratory: Lung sounds clear bilaterally. Abdomen: With midline dressing intact. Some bowel sounds noted. Abdomen soft. LABORATORY: Hematology: White count 6.5, hemoglobin 12.0, hematocrit 35.6, MCV 86.2. Coagulation: Sodium 136, potassium 3.9, chloride 99, CO2 20, BUN 8, creatinine 0.7, glucose 96. ASSESSMENT AND PLAN: Status post surgery on 09/17/2016, sigmoid colon resection , right colon resection with distal ileum, and diverticulectomy and biopsy of peritoneal nodule. Pathology is pending. Continue supportive care. Continue to advance diet when able. GI will be available as needed. Dictated by BRIDGETT Parrish for Guido Benites MD Addendum: Obtained verbal pathology report, both TI and sigmoid colon shows Adenocarcinoma with positive lymph nodes. It appears he has stage IV disease. Needs chemotherapy. Will get oncology consult. Guido Benites MD [facility]
--- NOTE | 2016-09-21 15:23 | PROGRESS NOTE ---
DATE: 09/21/2016 SUBJECTIVE: This patient states that he is doing better. He has been tolerating p.o. Today, the diet has been advanced to full liquid diet. He denies nausea, vomiting, diarrhea, or constipation. He is ambulating, as well. OBJECTIVE: Vital Signs: Temperature 98.5, pulse 71, respiratory rate 16, blood pressure 137/84, oxygen saturation 98% on room air. HEENT: Head normocephalic. No trauma. PERRLA. Neck: Supple. No JVD. No masses. Central trachea. Cardiovascular: RRR. No murmurs. No gallops. No rubs. Chest: Clear to auscultation. No wheezing. No rales. Abdomen: Soft with a dressing covering the midline of the abdomen that is clean and dry. Bowel sounds are present. Neurological Examination: The patient is alert and oriented x3. No focal neurological deficits. LABORATORIES: WBC 6.5, hemoglobin 12, hematocrit 35.6, platelets 250,000. Sodium 136, potassium 3.9, chloride 99, bicarbonate 28, BUN 8, creatinine 0.7, glucose 96, calcium 8.1. ASSESSMENT AND PLAN: 1. Recurrent colitis status post sigmoid colon resection, right colon resection with distal ileum, diverticulectomy, biopsy of peritoneal nodule, pending biopsy results by pathology. We will continue monitoring this patient. His diet has been advanced today to full liquid diet. Physical Therapy is on board. He is ambulating and tolerating p.o. 2. Intractable nausea and vomiting, resolved. 3. Benign prostatic hypertrophy, stable. Continue with the same management. 4. Gastroesophageal reflux disease. Continue with PPI.
[2016-09-21] MEDS: LOVENOX SUBQ SCH (21:05)
[2016-09-22] MEDS: FLAGYL 500 MG/NS 100 ML IV SCH ×4 (04:38→21:54)
[2016-09-22] MEDS: LEVAQUIN 750 MG/D5W 150 ML IV SCH (05:45)
[2016-09-22 06:59] LABS: MANUAL DIFF NEEDED? NO
[2016-09-22 07:01] LABS: BASO% 0.4 % (0.0-0.8); EOS% 3.8 % (0.0-10.0); HEMATOCRIT 36.4 % (42.0-52.0); HEMOGLOBIN 12.4 g/dL (14.0-18.0); IMM GRAN# 0.02 X1000 (0.0-0.04); IMM GRAN% 0.4 % (0.0-0.5); LYMPH# 1.01 X1000 (1.2-3.4); LYMPH% 19.1 % (20.5-51.1); MCH 29.2 PG (27-31); MCHC 34.1 g/dL (33-37); MCV 85.6 FL (81-99); MONO# 0.44 X1000 (0.11-0.59); MONO% 8.3 % (1.7-9.3); MPV 10.1 FL (7.4-10.4); PLT 277 X1000 (130-400); RBC 4.25 XMIL (4.7-6.1)
[2016-09-22 07:43] LABS: AGAP 12; BUN 7 mg/dL (8-22); CHLORIDE 101 mmol/L (98-107); COSMO 275; POTASSIUM 3.4 mmol/L (3.5-5.1); SODIUM 139 mmol/L (136-145); TCO2 26 mmol/L (25-35)
[2016-09-22] MEDS ORDERED: KLOR-CON PO ONE (07:48)
[2016-09-22] MEDS: PERIDEX MT SCH ×2 (08:28→21:54)
[2016-09-22] MEDS: FLOMAX PO SCH (08:28)
[2016-09-22] MEDS: PROTONIX IV SCH (11:11)
[2016-09-22] MEDS: SODIUM CHLORIDE 0.9% INJ SCH (11:11)
[2016-09-22] MEDS ORDERED: NORCO-10 PO PRN (11:55)
--- NOTE | 2016-09-22 12:03 | PROGRESS NOTE ---
DATE: 09/22/2016 SUBJECTIVE: This patient states that he is doing better, but unfortunately he was notified that we have a positive biopsy result that showed metastatic colon adenocarcinoma. He is tolerating p.o. He is ambulating. He denies nausea, vomiting, diarrhea, constipation. OBJECTIVE: Vital Signs: Temperature 98.4 degrees, pulse 71, respiratory rate 14, blood pressure 115/81, oxygen saturation 98 on room air. HEENT: Head normocephalic. No trauma. PERRLA. Neck: Supple. No JVD. No masses. Central trachea. Chest: Clear to auscultation. No wheezing. No rales. Cardiovascular: RRR. No murmurs. Abdomen: Soft. Mild tenderness to palpation around the surgical scar. Positive bowel sounds. Nondistended. Extremities: No edema. No clubbing. No cyanosis. Neurological examination: Patient is alert and oriented x3. No focal neurological deficits. LABORATORY: WBC 5.2, hemoglobin 12.4, hematocrit 36.4, platelets 277. Sodium 139, potassium 3.4, chloride 101, bicarbonate 26. BUN 7, creatinine 0.8, calcium 8, glucose 95. ASSESSMENT AND PLAN: 1. Recurrent colitis status post sigmoid colon resection, pathology report showed metastatic colon adenocarcinoma. Dr. Blake from Hematology/Oncology Department has been consulted. Will follow her recommendations. 2. Metastatic colon adenocarcinoma as above. 3. Intractable nausea and vomiting, resolved. 4. Benign prostatic hyperplasia, stable. Continue with the same management. 5. Gastroesophageal reflux disease. Continue with proton pump inhibitors. 6. Hypokalemia. I will replace the potassium today.
--- NOTE | 2016-09-22 14:57 | Diag Imaging Result Document ---
PROCEDURE NAME: THORAX W/WO CONTRAST - 09/22/2016 CT CHEST WITH AND WITHOUT IV CONTRAST: COMPARISON: No prior CT chest is available for comparison. FINDINGS: There are a few small noncalcified nodules scattered bilaterally with more on the right. Two of the larger nodules are in the right middle lobe and both measure up to 7.2 mm. On the right, there is a pleural-based nodule in the left upper lobe anteriorly measuring about 5.5 mm. There are a few other tiny pleural-based nodules on the left. There are bilateral small pleural effusions and bibasilar atelectasis. No airspace consolidations are appreciated. There are a few calcified mediastinal and hilar lymph nodes indicating prior granulomatous disease. The heart is not enlarged. Limited views of the upper abdomen reveal ascites tracking around the liver and the spleen similar to the previous abdominal CT report dated 09/15/2016. There are several stable cystic-appearing hepatic lesions and there are a couple of stable left renal cysts. The bony structures of the thorax are grossly intact with nothing that would suggest local bony metastatic disease. IMPRESSION: 1. Small bilateral pleural effusions at the bases and bibasilar atelectasis. 2. Multiple noncalcified nodules bilaterally as described. Statistically, these probably represent noncalcified granulomata. There is evidence of prior granulomatous disease elsewhere. Nonetheless, followup based on [employer] Society Criteria is recommended to assure stability since there is a given history of colon cancer. 3. Not mentioned above, there are several droplets of intra-abdominal free gas. However, a ventral abdominal wall staple line is noted. This is assumed to be postsurgical gas. Please correlate clinically. 4. Other incidental/nonacute findings detailed above. [facility]
[2016-09-22] MEDS: LOVENOX SUBQ SCH (21:54)
[2016-09-23 04:03] VITALS: BP 125/83
[2016-09-23] MEDS: FLAGYL 500 MG/NS 100 ML IV SCH ×2 (04:32→11:31)
[2016-09-23] MEDS: LEVAQUIN 750 MG/D5W 150 ML IV SCH (05:41)
[2016-09-23 06:21] LABS: MANUAL DIFF NEEDED? NO
[2016-09-23 06:23] LABS: BASO% 0.2 % (0.0-0.8); EOS# 0.32 X1000 (0.0-0.7); EOS% 4.9 % (0.0-10.0); HEMATOCRIT 35.1 % (42.0-52.0); IMM GRAN# 0.03 X1000 (0.0-0.04); IMM GRAN% 0.5 % (0.0-0.5); LYMPH# 1.39 X1000 (1.2-3.4); LYMPH% 21.3 % (20.5-51.1); MCH 29.1 PG (27-31); MCHC 34.2 g/dL (33-37); MCV 85.2 FL (81-99); MONO% 9.2 % (1.7-9.3); NEUT% 63.9 % (42.2-75.2); PLT 284 X1000 (130-400); RBC 4.12 XMIL (4.7-6.1)
[2016-09-23 06:34] LABS: AGAP 11; BUN 7 mg/dL (8-22); CALCIUM 8.3 mg/dL (8.8-10.2); CHLORIDE 102 mmol/L (98-107); COSMO 277; POTASSIUM 3.6 mmol/L (3.5-5.1); SODIUM 140 mmol/L (136-145); TCO2 27 mmol/L (25-35)
[2016-09-23] MEDS: PROTONIX IV SCH (09:26)
[2016-09-23] MEDS: PERIDEX MT SCH (09:27)
[2016-09-23] MEDS: FLOMAX PO SCH (09:27)
[2016-09-23] MEDS: SODIUM CHLORIDE 0.9% INJ SCH (09:27)
--- NOTE | 2016-09-23 12:42 | PROGRESS NOTE ---
DATE: 09/23/2016 SUBJECTIVE: Patient states he is feeling better. He has had 2 bowel movements today. He is tolerating his diet. Pathology did come back for adenocarcinoma, invasive. See full pathology. Dr. Layla Blake has been consulted and seen the patient. There are plans to follow after discharge to start chemotherapy. OBJECTIVE: Vital Signs: Temperature 98.6 degrees, pulse 75, respirations 15, blood pressure 125/83. General Appearance: Patient is awake, alert, no acute distress. Respiratory: Lung sounds essentially clear bilaterally. Abdomen: Soft. Positive bowel sounds. The dressing has been removed. He has kulwinder intact open to air. PLAN: Continue supportive care. Continue to follow up after discharge with Dr. Saravia and Dr. Layla Blake. Follow with Dr. Benites in the next 3-4 weeks or sooner if needed. Patient voices understanding. Dictated by BRIDGETT Parrish for Guido Benites MD
--- NOTE | 2016-09-23 14:37 | CONSULTATION ---
DATE OF CONSULTATION: 09/22/2016 CONSULTATION REQUESTED BY: Dr. Zamora. CONSULTATION FOR: Metastatic colon cancer. HISTORY OF PRESENT ILLNESS: Mr. Salcido is a pleasant 76-year-old male who was previously admitted earlier in the year for colitis. He was discharged and then was readmitted at this time complaining of intermittent abdominal pain. CT of abdomen and pelvis was done and showed him to have a stricture of the distal ileum with proximal short bowel obstruction. He then underwent colonoscopy which then led to a sigmoid colon resection. Pathology has come back with invasive adenocarcinoma with positive nodes. He also has a metastatic peritoneal nodule. The patient does note that he had a polyp removed back in 2009 which was benign. He also had Hiro diverticulum of the small intestine. The patient is healing well from surgery at this time. We have been consulted as he needs to complete his staging and will need to discuss treatment options for his metastatic colon cancer. PAST MEDICAL HISTORY: 1. GERD. 2. Benign prostatic hypertrophy. PAST SURGICAL HISTORY: 1. Status post cholecystectomy. 2. Abdomen surgery to remove a polyp in 2009. 3. Now a colectomy. SOCIAL HISTORY: Patient denies any tobacco use ever. He also denies any alcohol or illicit drug use. FAMILY HISTORY: His mother had heart disease and at age of 89. His father also had heart disease and at age of 80. He reports that he has a sister with colon cancer and his mother also had breast cancer but his mother passed from her heart disease. REVIEW OF SYSTEMS: As per HPI. All else negative and noncontributory. PHYSICAL EXAMINATION: Vital Signs: Temperature 98.4 degrees, heart rate 71, respirations 16, blood pressure 115/81, O2 saturation 98% on room air. General: male lying in hospital bed in no acute distress. HEENT: Pupils equal, round and symmetric. Ears, nose, throat, neck and mouth. Oral mucosa is normal. Trachea is midline. Cardiovascular: S1-S2 heard without murmurs, gallops, rubs appreciated. Regular rate and rhythm. Respiratory: Clear to auscultation bilaterally. Normal respiratory effort. Abdomen: Soft, nondistended. He does have tenderness related to his previous surgery but nothing concerning at this time. Musculoskeletal: No bony abnormalities noted. Skin: No ecchymosis, no petechiae, no rash. Neurologic: Patient is alert and orient x3. No focal motor deficits noted. LABS AND STUDIES: White blood cells 5.29, hemoglobin 12.4, hematocrit 36.4, platelets 277,000. Sodium 139, potassium 3.4, chloride 101, CO2 26, BUN 7, creatinine 0.8, glucose 95. CT of abdomen and pelvis as well as pathology as per the HPI. ASSESSMENT AND PLAN: 1. Metastatic colon cancer. Will go ahead and proceed with a CT of the chest to complete staging. Will also check a postoperative CEA. Plan will be for likely outpatient chemotherapy once he has recovered from surgery. Patient will follow up with us in our office in the next couple of weeks to discuss further treatment at that time. 2. Gastroesophageal reflux disease. He is currently on Protonix. Continue. 3. Benign prostatic hypertrophy. He will continue his current dosing of Flomax. 4. Pain. He reports this is well controlled. He will continue with his current pain medications. 5. Status post colectomy. Management is as per surgery and the primary team, Dr. Zamora. We want to thank you for this consult and letting us participate in Mr. Salcido's care. Will continue to follow along, adjust treatment plan per his hospital course. Dictated by MALAIKA Cabrera for Layla Blake MD
--- NOTE | 2016-09-23 17:13 | DISCHARGE SUMMARY ---
ADMISSION DATE: 09/15/2016 DISCHARGE DATE: 09/23/2016 CONSULTATIONS: 1. Layla Blake M.D., Oncology. 2. Tamir Saravia M.D., General Surgery. 3. Guido Benites M.D., Gastroenterology. PERTINENT PROCEDURES: 1. Abdominopelvic CT showed more evident stricture at the distal-most ileum with proximal small bowel obstruction. Trace ascites slightly worsened since prior. 2. Incomplete colonoscopy and biopsy secondary to occluding stricture in the sigmoid colon. 3. Sigmoid colon resection, right colon resection with distal ileum, Meckel's diverticulectomy and biopsy of a peritoneal nodule performed by Dr. Tamir Saravia. Specimen showed invasive adenocarcinoma, normal sigmoid. Peritoneum biopsy showed metastatic colonic adenocarcinoma in the distal ileum with invasive adenocarcinoma. 4. Chest CT showed small bilateral pleural effusion at the bases and bibasilar atelectasis. Multiple noncalcified nodules bilaterally. Droplets of intra-abdominal free gas. Ventral abdominal wall staple line noted assumed to be postsurgical gas. DISCHARGE DIAGNOSES: 1. Recurrent colitis status post sigmoid colon resection. The pathology report showed metastatic colon adenocarcinoma. Also being followed by Dr. Blake with Oncology. Patient will follow up with them for treatment. 2. Metastatic colon adenocarcinoma. 3. Intractable nausea and vomiting. Resolved. 4. Benign prostatic hypertrophy. Stable. 5. Gastroesophageal reflux disease. Continue PPI. 6. Hypokalemia. Resolved. 7. Colitis ruled out by EGD. The patient did have partial bowel obstruction as well as almost occluding stricture in the sigmoid colon that was biopsied and an incomplete colonoscopy with biopsy. HOSPITAL COURSE: Briefly, Mr. Salcido is a 76-year-old, male, recently discharged from the hospital on 09/12/2016 after being treated for acute colitis. He was sent home on oral Levaquin and Flagyl, and was instructed to follow up with his PCP and Dr. Benites in 2 weeks. The patient said since his discharge he had begun feeling better, however, the day before his readmission he began having nausea, vomiting and abdominal pain. He described the abdominal pain as pins and needles type pain. It was intermittent and felt like it was coming in waves. The patient at the time of his admission was denying any diarrhea though he reports he has only gone a small amount over the past few days. By report it had been soft, formed stool, brown in color. No bloody or black stools. In the ED the patient did have a CT of the abdomen and pelvis performed that showed more evident stricture of the distal-most ileum with proximal small bowel obstruction and trace ascites slightly worse than prior. Patient initially was admitted for colitis and continued on IV antibiotics with a GI consult. Abdomen and pelvis CT was ordered after his admission. Dr. Benites was consulted. He underwent an incomplete colonoscopy and biopsy where he found an almost occluding stricture in the sigmoid colon that was biopsied. He discussed the findings with Dr. Saravia, the General Surgeon. The patient was taken to the OR where he underwent sigmoid colon resection, right colon resection with a distal ileum, Meckel's diverticulectomy and biopsy of a peritoneal node. The results of this showed metastatic adenocarcinoma. Patient's nausea and vomiting did resolve. Dr. Layla Blake was consulted. The patient will follow up with her outpatient to continue with recommendations of treatment. The patient will follow up upon discharge with Dr. Saravia as well as Dr. Benites in the next 3-4 weeks or sooner as needed. The patient has been feeling better. He has had 2 bowel movements on the date of his discharge. He was tolerating his diet. VITAL SIGNS AT TIME OF DISCHARGE: Temperature 98.6 degrees, heart rate 83, respirations 20, blood pressure is 125/83, O2 is 97% on room air. DISCHARGE DIET: GI soft with Ensure. DISCHARGE MEDICATIONS: 1. Flomax 0.4 mg p.o. daily. 2. Prilosec 40 mg p.o. daily. 3. [place] 10, 1 each p.o. q.4 hours p.r.n. pain. FOLLOWUP: 1. The patient is being discharged home. 2. He will follow up with Dr. Saravia on 09/29/2016, as well as Dr. Benites in 3-[address] Layla Blake on 10/07/2016. 3. Patient can follow up with his primary care physician Dr. Luis Mera in 7-10 days. 4. Patient can return to the ED for any worsening of symptoms. 5. Patient was also instructed on open colectomy care. DISCHARGE TIME: Greater than 30 minutes. Dictated by BRIDGETT Sanchez for Noe Dodson MD
== END 2016-09-23 14:05 | disposition home or self-care (01) | DRG 330 ==
LOC: ED 22:04 → EDIPHOLD 22:05 → UNDOADMIN 09-15 06:00 → EDIPHOLD 09-15 07:29 → 4N 09-15 07:29 → DIRADM 09-20 07:34 → 4N 09-20 07:40
PROVIDERS: ATTEND Internal Medicine
PROC: 0DBN8ZX Excision of Sigmoid Colon, Via Natural or Artificial Opening Endoscopic, Diagnostic (ICD-10-PCS; principal; 2016-09-16 11:36)
PROC: 0WBM0ZX Excision of Male Perineum, Open Approach, Diagnostic (ICD-10-PCS; 2016-09-17)
PROC: 0DTN0ZZ Resection of Sigmoid Colon, Open Approach (ICD-10-PCS; 2016-09-17 08:07)
PROC: 0DB80ZZ Excision of Small Intestine, Open Approach (ICD-10-PCS; 2016-09-17 08:07)
PROC: 0DTF0ZZ Resection of Right Large Intestine, Open Approach (ICD-10-PCS; 2016-09-17 08:07)
DX: C18.7 Malignant neoplasm of sigmoid colon (principal); C18.0 Malignant neoplasm of cecum; K56.69 Other intestinal obstruction; C78.6 Secondary malignant neoplasm of retroperitoneum and peritoneum; C77.2 Secondary and unspecified malignant neoplasm of intra-abdominal lymph nodes; K21.9 Gastro-esophageal reflux disease without esophagitis; E87.6 Hypokalemia; Q43.0 Meckel's diverticulum (displaced) (hypertrophic); N40.0 Benign prostatic hyperplasia without lower urinary tract symptoms; Z79.899 Other long term (current) drug therapy; Z80.3 Family history of malignant neoplasm of breast; Z80.0 Family history of malignant neoplasm of digestive organs
CPT/HCPCS: 36415; 71270; 74022; 74178; 80048; 80053; 81001; 82150; 82378; 83690; 85025; 85610; 85651; 85730; 86140; 87088; 88304; 88305; 88307; 88309; 88313; 94761; 94799; 96365; 96375; C9113; J0330; J1100; J1650; J2270; J2405; J3010; J7030; J7120; Q9967; J2710; S0030; S0164